=== PATIENT | female | born 1945 | race Caucasian/White ===

== ENCOUNTER 2020-08-08 10:33 | Inpatient (IN) ==
[2020-08-08] MEDS ORDERED: CeFAZolin Syr 2,000MG/20 ML 2,000 MG/20 ML SYRINGE IVPB ONE (11:02)
[2020-08-08] MEDS ORDERED: Clindamycin 900 MG/50 ML 900 MG/50 ML IV.SOLN IVPB ONE (11:13)
[2020-08-08] MEDS ORDERED: Ringers Solution, Lactated 1,000 ML IVC SCH ×2 (11:15→14:35)
[2020-08-08] MEDS ORDERED: *HR* Propofol 200 MG/20 ML VIAL IVP ONE (11:46)
[2020-08-08] MEDS ORDERED: *HR* Succinylcholine 200 MG/10 ML VIAL IVP ONE (11:46)
[2020-08-08] MEDS ORDERED: Dexamethasone 4 MG/ML VIAL ONE (11:46)
[2020-08-08] MEDS ORDERED: Lidocaine -MPF 2% 2 ML VIAL ONE (11:46)
[2020-08-08] MEDS ORDERED: Ondansetron 4 MG/2 ML VIAL ONE (11:46)
[2020-08-08] MEDS ORDERED: Lidocaine HCL 4 ML Topical Solution (Laryng-O-Jet Kit Sterile Pak) TP ONE (11:48)
[2020-08-08] MEDS ORDERED: *HR* PHENYLEPHRINE 1,000 MCG/10 ML SYRINGE IVP ONE (11:48)
[2020-08-08] MEDS ORDERED: Ropivacaine/PF 0.5% 30 ML VIAL ONE (12:02)
[2020-08-08] MEDS ORDERED: Promethazine 6.25 MG in Water for inj. (sterile) 20 ML IVPB PRN (12:16)
[2020-08-08] MEDS ORDERED: Famotidine 20 MG/2 ML VIAL IVP ONE (12:17)
[2020-08-08] MEDS ORDERED: *HR* HYDROmorphone 2 MG TABLET PO PRN (12:17)
[2020-08-08] MEDS ORDERED: *HR* OxyCODONE Immed Rel 5 MG TABLET PO PRN ×2 (12:17→14:35)
[2020-08-08] MEDS ORDERED: Acetaminophen IV 1,000 MG/100 ML BAG IVPB ONE (12:17)
[2020-08-08] MEDS ORDERED: *HR* Labetalol 20 MG/4 ML SYRINGE IVP PRN (12:17)
[2020-08-08] MEDS ORDERED: *HR* HYDROmorphone PF 0.5 MG/0.5 ML SYRINGE IVP PRN (12:17)
[2020-08-08] MEDS ORDERED: *HR* Midazolam HCl 2 MG/2 ML VIAL ONE (12:44)
[2020-08-08] MEDS ORDERED: Povidone-Iodine 45 ML, Sodium Chloride IRRigation 1,000 ML IR ONE (13:55)
[2020-08-08] MEDS ORDERED: Ethanol\\Acetic Acid\\Na Ace\\Ben 1,000 ML IRRIG.SOLN IR ONE (14:05)
[2020-08-08] MEDS ORDERED: Vancomycin 1,000 MG VIAL ONE (14:05)
[2020-08-08] MEDS ORDERED: D5% in Water 1,000 ML IVC PRN (14:35)
[2020-08-08] MEDS ORDERED: MOM Conc 10 ML UD.LIQ PO PRN (14:35)
[2020-08-08] MEDS ORDERED: *HR* OxyCODONE/APAP 5/325 TABLET PO PRN (14:35)
[2020-08-08] MEDS ORDERED: Ondansetron 4 MG/2 ML VIAL IVP PRN (14:35)
[2020-08-08] MEDS ORDERED: Sennosides 8.6 MG TABLET PO PRN (14:35)
[2020-08-08] MEDS ORDERED: Dextrose Gel 15 GM/37.5 ML TUBE PO PRN ×2 (14:35)
[2020-08-08] MEDS ORDERED: *HR* Dextrose 50 % in Water (Vial) 50 ML VIAL IVP PRN (14:35)
[2020-08-08] MEDS ORDERED: Naloxone 0.4 MG/ML INJ IVP PRN (14:35)
[2020-08-08 15:01] LABS: Hematocrit 36.5 % (35.3-44.9); Hemoglobin 12.2 g/dL (11.5-15.4)
[2020-08-08] MEDS: Insulin LISPRO 300 UNITS/3 ML VIAL SUBQ SCH (18:43)
[2020-08-08] MEDS: Clindamycin 900 MG/50 ML 900 MG/50 ML IV.SOLN IVPB SCH (20:07)
[2020-08-08] MEDS ORDERED: Insulin LISPRO 300 UNITS/3 ML VIAL SUBQ SCH (21:00)
[2020-08-08] MEDS ORDERED: Latanoprost 2.5 ML BOTTLE BOTH EYES SCH (21:00)
[2020-08-09 04:40] LABS: Hematocrit 33.6 % (35.3-44.9); Hemoglobin 11.1 g/dL (11.5-15.4)
[2020-08-09] MEDS: Clindamycin 900 MG/50 ML 900 MG/50 ML IV.SOLN IVPB SCH (04:46)
[2020-08-09 04:52] LABS: BUN/Creatinine Ratio 24 (6-26); Blood Urea Nitrogen 24 mg/dL (8-23); Calcium 9.3 mg/dL (8.6-10.3); Carbon Dioxide 24 mEq/L (23-29); Chloride 103 mEq/L (98-107); Glucose 174 mg/dL (70-105); Osmolality,Calculated 288 (280-300); Potassium 3.6 mEq/L (3.5-5.1); Sodium 135 mEq/L (136-145); eGFR For African Americans > 60 (> 60); eGFR For Non-African Americans 54 (> 60)
[2020-08-09 07:12] VITALS: BP 117/78
[2020-08-09] MEDS: Insulin LISPRO 300 UNITS/3 ML VIAL SUBQ SCH (07:49)
[2020-08-09] MEDS ORDERED: hydroCHLOROthiazide 25 MG TABLET PO SCH (09:00)
[2020-08-09] MEDS ORDERED: amLODIPine 5 MG TABLET PO SCH (09:00)
[2020-08-09] MEDS ORDERED: *HR* Enoxaparin 30 MG/0.3 ML SYRINGE SQ SCH (11:22)
== END 2020-08-09 12:25 | disposition home or self-care (01) | DRG 483 ==
LOC: SAMDAY 10:33 → 3NENU 15:06
PROVIDERS: ADMIT Orthopaedic Surgery; ATTEND Orthopaedic Surgery